=== PATIENT | male | born 1985 | race Hispanic/Latino ===

== ENCOUNTER 2019-07-11 12:07 | Emergency (ER) | payer BC ==
[2019-07-11] MEDS ORDERED: Lidocaine 1% PF 5 ML VIAL ONE (12:14)
[2019-07-11] MEDS ORDERED: Adacel (T-DAP) 0.5 ML SYRINGE ONE (12:46)
== END 2019-07-11 12:43 | disposition home or self-care (01) ==
LOC: SCSER 12:07
DX: S61.210A Laceration without foreign body of right index finger without damage to nail, initial encounter (principal); W25.XXXA Contact with sharp glass, initial encounter
CPT/HCPCS: 12001; 90471; 90715; J2001